=== PATIENT | male | born 1955 | race Caucasian/White ===

== ENCOUNTER 2017-01-06 12:15 | Emergency (ER) | payer MEDICAID, OTHER ==
[2017-01-06 12:21] VITALS: RESP 20; TEMP 98; O2SAT 100
--- NOTE | 2017-01-06 12:47 | ED PDOC ---
Lower Extremity Pain/Injury Time Seen by Provider: 01/06/17 12:30 Chief Complaint (Nursing): Back Pain Chief Complaint (Provider): Left hip pain History Per: Patient History/Exam Limitations: no limitations Onset/Duration Of Symptoms: Days (x3) Current Symptoms Are (Timing): Still Present Additional Complaint(s): Ronaldo Lanza is a 61 year old male with previous medical history of diabetes and hypertension, who presents to the emergency department with a complaint of a gradual onset of left hip pain ongoing for 3 days. Denied any fever, chills, or swelling. Patient stated pain is constant and have been taking Ibuprofen for pain relief. PMD: Lance Daniel MD Past Medical History Reviewed: Historical Data, Nursing Documentation, Vital Signs Vital Signs: Last Vital Signs Temp 98.0 F 01/06/17 12:18 Pulse 115 H 01/06/17 12:18 Resp 20 01/06/17 12:18 BP 159/83 H 01/06/17 12:18 Pulse Ox 100 01/06/17 12:18 - Medical History PMH: Diabetes, HTN - Surgical History Surgical History: No Surg Hx - Family History Family History: States: Unknown Family Hx - Home Medications Home Medications: Ambulatory Orders Medication Instructions Recorded traMADol [Ultram] 50 mg PO TID #16 tab 12/31/13 Cyclobenzaprine [Cyclobenzaprine 10 mg PO BID #10 tab 03/02/16 HCl] Ibuprofen [Motrin] 600 mg PO Q6 #20 tab 01/06/17 - Allergies Allergies/Adverse Reactions: Allergies Allergy/AdvReac Type Severity Reaction Status Date / Time No Known Allergies Allergy Verified 03/02/16 20:46 Review of Systems ROS Statement: Except As Marked, All Systems Reviewed And Found Negative Constitutional: Negative for: Fever, Chills Musculoskeletal: Positive for: Leg Pain (left hip). Negative for: Other ( swelling) Physical Exam - Reviewed Nursing Documentation Reviewed: Yes Vital Signs Reviewed: Yes - Physical Exam Appears: Positive for: Well, Non-toxic, No Acute Distress Head Exam: Positive for: ATRAUMATIC, NORMAL INSPECTION, NORMOCEPHALIC Skin: Positive for: Normal Color Extremity: Positive for: Normal ROM (with pain on external rotation of lower extremity), Tenderness (left inguinal crease). 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 Provider Scribe Attestation: All medical record entries made by the Scribe were at my direction and personally dictated by me. I have reviewed the chart and agree that the record accurately reflects my personal performance of the history, physical exam, medical decision making, and the department course for this patient. I have also personally directed, reviewed, and agree with the discharge instructions and disposition. Disposition - Clinical Impression Clinical Impression: Hip pain, Arthralgia, DJD (degenerative joint disease) - Patient ED Disposition Is Patient to be Admitted: No - Disposition Disposition: Routine/Home Disposition Time: 14:04 Condition: STABLE Prescriptions: Ibuprofen [Motrin] 600 mg PO Q6 #20 tab Instructions: Hip Pain (ED), Arthritis (ED) Forms: [address] ([place]ican)
[2017-01-06] MEDS ORDERED: Oxycodone/Acetaminophen 5/325 mg Tab PO STA (12:51)
[2017-01-06] MEDS ORDERED: Oxycodone/Acetaminophen 5/325 mg Tab ONE (13:19)
--- NOTE | 2017-01-06 14:02 | RAD ---
PROCEDURE: Left Hand Radiographs. HISTORY: Left hip pain COMPARISON: None. FINDINGS: BONES: The pelvic ring is intact. Bone mineralization is normal. There is no acute displaced fracture or bone destruction. JOINTS: The hip joint spaces are preserved. The sacroiliac joints are normal. SOFT TISSUES: Normal. OTHER FINDINGS: There are multiple phleboliths in the pelvis. IMPRESSION: No acute displaced fracture or dislocation. Please note occult fractures cannot be excluded on plain radiographs. If there is a persistent clinical concern, an MRI of the hip may be performed for further evaluation.
[2017-01-06 14:09] VITALS: BP 145/84; PULSE 93
== END 2017-01-06 14:08 | disposition home or self-care (01) ==
LOC: H.ER 12:15
DX: M25.552 Pain in left hip (principal); E11.9 Type 2 diabetes mellitus without complications; I10 Essential (primary) hypertension

== ENCOUNTER 2017-08-14 18:38 | Inpatient (IN) | payer MEDICAID, OTHER ==
--- NOTE | 2017-08-14 19:41 | ED PDOC ---
HPI:STROKE - Time Time: 19:20 - Historian Historian: Patient - Chief Complaint Chief Complaint: Slurred speech, Facial droop - Onset Date: 08/13/17 Time: 18:30 Onset: Yesterday - Timing Timing: Persistent - Location Locate left: Face - Radiation Radiation: None - Severity of pain Maximum severity:: None Pain Scale:: 0 - Exacerbated by Exacerbated by:: Nothing - TPA Positive for Contraindication: No Reason tPA is not being Administered: Out of window - Notes: Notes:: Hx of IDDM, HTN p/w L facial droop, states that he was asleep at 6:30PM and was awoken by a phone call, states he was talking to someone on the phone and noticed his voice was different, patient looked in mirror and noticed a facial droop on the left side, however denies any extremity weakness, sensation change , change in gait, vision loss. States he had a "little headache" that has since resolved. Patient notes that yesterday he was cleaning his left ear, but denies any ear pain. Denies alcohol, drug use. Patient also endorses pleuritic chest pain. NIHSS Stroke Scale - Date/Time Evaluation Performed Date Performed: 08/14/17 Time Performed: 19:20 When Was NIHSS Performed: 24 hours post onset S/S - How Severe is the Stroke Level of Consciousness: 0=Alert LOC to Questions: 0=Both comments correct LOC to commands: 0=Obeys both correctly Best Gaze: 0=Normal Visual: 0=No visual loss Facial: 2=Partial (lower face paralysis) Motor Arm - Left: 0=No drift Motor Arm - Right: 0=No drift Motor Leg - Left: 0=No drift Motor Leg - Right: 0=No drift Limb Ataxia: 0=Absent Sensory: 0=Normal Best Language: 0=No aphasia Dysarthia: 0=Normal articulation Extinction & Inattention (Neglect): 0=Normal, no object Score: 2 rTPA Inclusion/Exclusion - Refusal of Treatment Patient Refused Treatment: No - Inclusion Criteria for Altepase Patient is 18 years or Older: Yes The Clinical Diagnosis of Ischemic Stroke That is Causing a Potentially Disabling Neurological Deficit: No Time of Onset is Well Established to be Less Than 270 Minute Before Treatment Would Begin: No Risk/Benefit Discussed With Patient/Family Member Present: No Past Medical History Reviewed: Historical Data, Nursing Documentation, Vital Signs Vital Signs: Last Vital Signs Temp 98.7 F 08/14/17 18:40 Pulse 110 H 08/14/17 18:40 Resp 16 08/14/17 18:40 BP 132/92 H 08/14/17 18:40 Pulse Ox 100 08/14/17 18:40 - Medical History PMH: Diabetes, HTN - Family History Family History: States: Unknown Family Hx - Home Medications Home Medications: Ambulatory Orders Medication Instructions Recorded traMADol [Ultram] 50 mg PO TID #16 tab 12/31/13 Cyclobenzaprine [Cyclobenzaprine 10 mg PO BID #10 tab 03/02/16 HCl] Ibuprofen [Motrin] 600 mg PO Q6 #20 tab 01/06/17 Aspirin [Ecotrin] 81 mg PO DAILY 08/14/17 Insulin Glargine, Recombina 30 unit SC QPM 08/14/17 [Lantus] MetFORMIN [glucOPHAGE] 1,000 mg PO BID 08/14/17 - Allergies Allergies/Adverse Reactions: Allergies Allergy/AdvReac Type Severity Reaction Status Date / Time No Known Allergies Allergy Verified 03/02/16 20:46 Review of Systems ROS Statement: Except As Marked, All Systems Reviewed And Found Negative Neurological: Positive for: Other (Facial Droop) Physical Exam - Reviewed Nursing Documentation Reviewed: Yes Vital Signs Reviewed: Yes - Physical Exam Appears: Positive for: Well, Non-toxic, No Acute Distress Head Exam: Positive for: ATRAUMATIC, NORMAL INSPECTION, NORMOCEPHALIC Skin: Positive for: Normal Color, Warm, DRY Eye Exam: Positive for: EOMI, Normal appearance, PERRL ENT: Positive for: Normal ENT Inspection, Other (Normal TMs) Neck: Positive for: Normal, Painless ROM Cardiovascular/Chest: Positive for: Regular Rate, Rhythm Respiratory: Positive for: CNT, Normal Breath Sounds Gastrointestinal/Abdominal: Positive for: Normal Exam, Soft Back: Positive for: Normal Inspection Extremity: Positive for: Normal ROM Neurologic/Psych: Positive for: 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 Negative for: Motor/Sensory Deficits, Aphasia - Laboratory Results Result Diagrams: 08/14/17 19:56 08/14/17 19:56 - ECG ECG Rhythm: Positive for: Normal QRS, Normal ST Segment, Sinus Rhythm O2 Sat by Pulse Oximetry: 100 Pulse Ox Interpretation: Normal - Critical Care Total Time (In Min): 30 Medical Decision Making Medical Decision MakinPM A/P: Hx of HTN, DM p/w L facial droop onset 6:30PM, also pleuritic CP -ABC's intact, tachycardia on monitor -patient has isolated L facial droop, however still wrinkling eyebrows and able to completely close L eye which likely excludes Iniguez's, but possible partial Iniguez's? -will initiate stroke workup, however patient is well out of window for TPA -pending CT, bloodwork, neuro consult -patient took ASA 81mg today, will give full dose after CT to r/o hemorrhagic infarct -pending admit to tele after workup complete for further stroke workup/ management including MRI, dopplers, eval by neuro Disposition - Clinical Impression Clinical Impression: Facial droop - Disposition Disposition Time: 21:40 Condition: SERIOUS
[2017-08-14 20:00] LABS: BASO % 0.3 % (0.0-2.0); EOS # 0.2 K/uL (0.0-0.7); HEMOGLOBIN 11.5 g/dL (12.0-18.0); LYMPH # 1.8 K/uL (1.0-4.3); LYMPH % 28.7 % (20.0-40.0); MEAN CELL VOLUME 79.2 fl (80.0-94.0); MEAN CORPUSCULAR HEMOGLOBIN 26.5 pg (27.0-31.0); MEAN CORPUSCULAR HGB CONC 33.4 g/dL (33.0-37.0); MEAN PLATELET VOLUME 8.6 fl (7.2-11.7); MONO # 0.5 K/uL (0.0-0.8); NEUT # 3.6 K/uL (1.8-7.0); RBC 4.33 Mil/uL (4.40-5.90); RED CELL DISTRIBUTION WIDTH 14.5 % (11.5-14.5); WHITE BLOOD COUNT 6.2 K/uL (4.8-10.8)
[2017-08-14 20:14] LABS: INR 1.1 (0.9-1.2); PARTIAL THROMBOPLASTIN TIME 37.4 Seconds (25.6-37.1); PROTHROMBIN TIME 11.7 Seconds (9.8-13.1)
[2017-08-14] MEDS ORDERED: Sodium Chloride 0.9% 1,000 ML IV STA (21:23)
[2017-08-14] MEDS ORDERED: Iodixanol 320 MG/ML 100 ML BOTTLE IV ONE (21:27)
[2017-08-14] MEDS ORDERED: Sodium Chloride 0.9% 100 ML ONE (21:27)
[2017-08-14 21:58] LABS: ALBUMIN 4.4 g/dL (3.5-5.0); ALT/SGPT 14 U/L (21-72); AST/SGOT 25 U/L (17-59); BLOOD UREA NITROGEN 15 mg/dl (9-20); CALCIUM 9.8 mg/dL (8.4-10.2); GFR AFRICAN-AMERICAN > 60; GFR NON-AFRICAN AMERICAN > 60; HDL CHOLESTEROL 29 MG/DL (30-70)
[2017-08-14 22:09] LABS: LDL CHOLESTEROL 90 mg/dL (0-129)
--- NOTE | 2017-08-14 23:18 | CP.PCM.HP ---
History of Present Illness - History of Present Illness History of Present Illness: PMD: Fredy Wilson MD Chief complaint: Slurred speech/ Facial droop The patient was seen and examined in the ED HPI: This is a 61 years old male with hx of DM I, HTN and branchial Plexopathy who comes with a 24hours hx of left left facial weakness and slurred speech noted while talking on the phone and looking in the mirror. This was associated by feeling out of balance with frontal headaches and chest tightness. No weakness to upper nor lower extremities, no loss of sensation, no abnormalities to the eyes, no SOB nor palpitations. In the ED his NIHSS was 2. He does refer fever and chills4-5 days ago and was in [place] 4-5 days ago. 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 absent: Anorexia, Chills, Fever - EENT Eyes: Requires Corrective Lenses. absent: Diplopia, Floaters, Sees Flashes Ears: absent: Decreased Hearing, Ear Discharge, Tinnitus Nose/Mouth/Throat: absent: Epistaxis, Nasal Congestion, Sinus Pain, Sinus Pressure - Cardiovascular Cardiovascular: absent: Chest Pain, Dyspnea, Edema - Respiratory Respiratory: absent: Dyspnea, Wheezing, Snoring, Stridor - Gastrointestinal Gastrointestinal: Constipation. absent: Diarrhea, Nausea, Vomiting - Musculoskeletal Additional comments: Chronic Right upper extremity weakness with contracted fingers of the right hand. Right shoulder weakness Left total shoulder replacement - Integumentary Integumentary: absent: Pruritus, Rash, Skin Ulcer, Sores, Striae, Swelling - Neurological Neurological: Focal Weakness, Headaches. absent: Confusion, Dizziness, Loss of Vision Additional comments: lightheadedness - Psychiatric Psychiatric: absent: Anxiety, Depression, Panic Attacks - Endocrine Endocrine: absent: Palpitations, Polydipsia, Polyphagia, Polyuria - Hematologic/Lymphatic Hematologic: absent: Easy Bleeding, Easy Bruising Past Patient History - Infectious Disease Hx of Infectious Diseases: None - Past Medical History & Family History Past Medical History?: Yes - Past Social History Smoking Status: Never Smoked Chewing Tobacco Use: No Cigar Use: No Alcohol: None Drugs: Denies Home Situation {Lives}: With Family - CARDIAC Hx Hypertension: Yes - PULMONARY Hx Respiratory Disorders: No - NEUROLOGICAL Hx Neurological Disorder: Yes - HEENT Other/Comment: Right Ulnar Neuropathy/ Right branchial plexopathy - RENAL Hx Chronic Kidney Disease: No - ENDOCRINE/METABOLIC Hx Diabetes Mellitus Type 2: Yes - HEMATOLOGICAL/ONCOLOGICAL Hx Blood Disorders: No - INTEGUMENTARY Hx Dermatological Problems: No - MUSCULOSKELETAL/RHEUMATOLOGICAL Hx Musculoskeletal Disorders: Yes Other/Comment: Right hand deformity with contracted fingers - GASTROINTESTINAL Hx Gastrointestinal Disorders: No - GENITOURINARY/GYNECOLOGICAL Hx Genitourinary Disorders: No - PSYCHIATRIC Hx Substance Use: No - SURGICAL HISTORY Other/Comment: right arm surgery due to a work related accident. Surgery to right wrist and right elbow. Left Total shoulder replacement - ANESTHESIA Hx Anesthesia: Yes Hx Anesthesia Reactions: No Hx Malignant Hyperthermia: No Meds Allergies/Adverse Reactions: Allergies Allergy/AdvReac Type Severity Reaction Status Date / Time No Known Allergies Allergy Verified 03/02/16 20:46 Physical Exam - Constitutional Appears: No Acute Distress - Head Exam Head Exam: ATRAUMATIC, NORMOCEPHALIC Additional comments: left facial droop - Eye Exam Eye Exam: EOMI, Normal appearance Pupil Exam: NORMAL ACCOMODATION, PERRL - ENT Exam ENT Exam: Mucous Membranes Moist, Normal External Ear Exam, Normal Oropharynx - Neck Exam Neck exam: Positive for: Full Rom, Normal Inspection. Negative for: Lymphadenopathy, Tenderness - Respiratory Exam Respiratory Exam: Clear to Auscultation Bilateral. absent: Rales, Rhonchi, Wheezes - Cardiovascular Exam Cardiovascular Exam: REGULAR RHYTHM, RRR, +S1, +S2. absent: Gallop, JVD - GI/Abdominal Exam GI & Abdominal Exam: Normal Bowel Sounds, Soft. absent: Mass, Organomegaly, Tenderness - Rectal Exam Rectal Exam: Deferred - Extremities Exam Additional comments: Right elbow with semi flexion. The right fingers are contracted in flexion. Weakness to theright shoulder. - Back Exam Back exam: NORMAL INSPECTION. absent: CVA tenderness (L), CVA tenderness (R) - Neurological Exam Additional comments: Awake , alert, oriented X3, left facial droop with slurred speech. motor strength 5/5 at both lower extremities and left upper extremity. The right upper extremity has a chronic 4/5 motor strength. DTR conserved - Psychiatric Exam Psychiatric exam: Normal Affect, Normal Mood - Skin Skin Exam: Dry, Intact, Normal Color, Warm Results - Vital Signs Recent Vital Signs: Last Vital Signs Temp 98.5 F 08/14/17 21:59 Pulse 105 H 08/14/17 21:53 Resp 20 08/14/17 21:53 BP 134/73 08/14/17 21:53 Pulse Ox 98 08/14/17 21:53 - Labs Result Diagrams: 08/14/17 19:56 08/14/17 19:56 Labs: Laboratory Results - last 24 hr 08/14/17 08/14/17 08/14/17 19:32 19:56 19:56 WBC 6.2 RBC 4.33 L Hgb 11.5 L Hct 34.2 L MCV 79.2 L MCH 26.5 L MCHC 33.4 RDW 14.5 Plt Count 295 MPV 8.6 Neut % (Auto) 59.0 Lymph % (Auto) 28.7 [place] % (Auto) 8.0 Eos % (Auto) 4.0 Baso % (Auto) 0.3 Neut # (Auto) 3.6 Lymph # (Auto) 1.8 [place] # (Auto) 0.5 Eos # (Auto) 0.2 Baso # (Auto) 0.0 PT INR APTT D-Dimer, Quantitative Sodium 143 Potassium 4.1 Chloride 100 Carbon Dioxide 26 Anion Gap 21 H BUN 15 Creatinine 1.1 Est GFR ( Amer) > 60 Est GFR (Non-Af Amer) > 60 POC Glucose (mg/dL) 108 Random Glucose 85 Calcium 9.8 Total Bilirubin 0.5 AST 25 ALT 14 L Alkaline Phosphatase 65 Troponin I < 0.0120 Total Protein 8.7 H Albumin 4.4 Globulin 3.9 Albumin/Globulin Ratio 1.0 Triglycerides 122 Cholesterol 148 LDL Cholesterol Direct 90 HDL Cholesterol 29 L Blood Type Antibody Screen BBK History Checked 08/14/17 08/14/17 19:56 19:56 WBC RBC Hgb Hct MCV MCH MCHC RDW Plt Count MPV Neut % (Auto) Lymph % (Auto) [place] % (Auto) Eos % (Auto) Baso % (Auto) Neut # (Auto) Lymph # (Auto) [place] # (Auto) Eos # (Auto) Baso # (Auto) PT 11.7 INR 1.1 APTT 37.4 H D-Dimer, Quantitative 366 H Sodium Potassium Chloride Carbon Dioxide Anion Gap BUN Creatinine Est GFR ( Amer) Est GFR (Non-Af Amer) POC Glucose (mg/dL) Random Glucose Calcium Total Bilirubin AST ALT Alkaline Phosphatase Troponin I Total Protein Albumin Globulin Albumin/Globulin Ratio Triglycerides Cholesterol LDL Cholesterol Direct HDL Cholesterol Blood Type A POSITIVE Antibody Screen Negative BBK History Checked Patient has bt - Imaging and Cardiology CT scan - head Status: Image reviewed by me, Report reviewed by me Additional comment: EXAM: CT Head Without Intravenous Contrast EXAM DATE/TIME: 08/14/2017 7:20 PM FINDINGS: Brain: No intracranial hemorrhage. Mild periventricular hypoattenuation is likely due to small vessel disease. No evidence of evolved territorial infarct or cerebral edema. No mass effect or midline shift. Ventricles: Unremarkable. No ventriculomegaly. Bones/joints: No acute osseous abnormality. Soft tissues: No soft tissue swelling. Sinuses: Visualized paranasal sinuses are clear. Mastoid air cells: Mastoid air cells are well-aerated IMPRESSION: No acute intracranial findings. CTA chest Additional comment: EXAM: CT Angiography Chest With Intravenous Contrast EXAM DATE/TIME: 08/14/2017 9:23 PM FINDINGS: No pulmonary embolism. No aortic dissection or aneurysm. No pleural or pericardial effusion. No pulmonary consolidation. Small round calcification right lower lung. Mild degenerative changes are present. IMPRESSION: No acute findings. Assessment & Plan - Assessment and Plan (Free Text) Assessment: #. Left facial weakness #. Anemia #. DM II insulin requiring #. Elevated D Dimer #. 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 In the ED his NIHSS was 2. #. Left facial weakness with lightheadedness being out of balance, r/o CVA vs bells palsy CT-Head IMPRESSION: No acute intracranial findings. Consult Dr Richard Neurology -CTA of head and neck - MRI brain - HIV - RPR - Neuro checks Q4H - Swallow Evaluation - PT/OT - Speech therapy - ASA #. Anemia - Iron panel/B12 level - follow HB #. DM II insulin requiring - Hold Metformin for 48 hrs because of Contrast used in cat scan - Regular Insulin sliding scale according to Accucheck - Restart Long acting Insulin - follow HbA1c #. Elevated D Dimer - CTA Chest Negative for Pulmonary Embolism #. 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 DVT prophylaxis with SCD and Lovenox #. Code Status: Full - Date & Time Date: 08/14/17 Time: 23:18
--- NOTE | 2017-08-14 23:45 | CT ---
EXAM: CT Angiography Chest With Intravenous Contrast EXAM DATE/TIME: 08/14/2017 9:23 PM CLINICAL HISTORY: 61 years old, male; Pain; Chest pain; Type not specified; Additional info: R/O pe TECHNIQUE: Axial computed tomographic angiography images of the chest with intravenous contrast using pulmonary embolism protocol. All CT scans at this facility use one or more dose reduction techniques, viz.: automated exposure control; ma/kV adjustment per patient size (including targeted exams where dose is matched to indication; i.e. head); or iterative reconstruction technique. MIP reconstructed images were created and reviewed. Coronal and sagittal reformatted images were created and reviewed. CONTRAST: 72 mL of [id number] administered intravenously. COMPARISON: CR - CHEST PORTABLE 2017-08-14 19:25 FINDINGS: No pulmonary embolism. No aortic dissection or aneurysm. No pleural or pericardial effussions. No pulmonary consolidation. Small round calcification right lower lung. Mild degenerative changes are present. IMPRESSION: No acute findings.
[2017-08-15] MEDS: Dextrose 5%/0.9% NS 1,000 ML IV SCH ×2 (00:16→11:25)
[2017-08-15] MEDS: Insulin Regular 100 units/ml SC SCH ×4 (00:17→17:58)
[2017-08-15 06:47] LABS: IRON 32 ug/dL (49-181)
[2017-08-15 06:56] LABS: % IRON SATURATION 12 % (20-55); TOTAL IRON BINDING CAPACITY 278 ug/dL (250-450)
[2017-08-15] MEDS ORDERED: Insulin Regular 100 units/ml SC SCH (07:30)
--- NOTE | 2017-08-15 09:26 | RAD ---
HISTORY: Code Stroke COMPARISON: The study was read in conjunction with subsequent CTA chest 08/14/2017 FINDINGS: LUNGS: No active pulmonary disease. PLEURA: No significant pleural effusion identified, no pneumothorax apparent. CARDIOVASCULAR: Normal. OSSEOUS STRUCTURES: No significant abnormalities. VISUALIZED UPPER ABDOMEN: Normal. OTHER FINDINGS: None. IMPRESSION: No active disease.
--- NOTE | 2017-08-15 10:01 | CT ---
PROCEDURE: CT HEAD WITHOUT CONTRAST. HISTORY: Left facial droop onset 6:30PM yesterday COMPARISON: None available. TECHNIQUE: Axial computed tomography images were obtained through the head/brain without intravenous contrast. Radiation dose: Total exam DLP = 790.45 mGy-cm. This CT exam was performed using one or more of the following dose reduction techniques: Automated exposure control, adjustment of the mA and/or kV according to patient size, and/or use of iterative reconstruction technique. FINDINGS: HEMORRHAGE: No acute parenchymal, subarachnoid or extra-axial hemorrhage. BRAIN: Moderate diffuse/confluent chronic white matter ischemic changes seen extending peripherally into the deep and subcortical white matter both cerebral hemispheres. The possibility of a small hyperacute infarct cannot be excluded as there is a concern, recommend followup MRI of the brain with diffusion imaging provided there are no contraindications to MRI this patient. No obvious parenchymal nor extra-axial mass or collection seen on this noncontrast study. Mild vascular calcifications. VENTRICLES: Hemispheres. No obstructive hydrocephalus. CALVARIUM: There are no acute calvarial fractures. PARANASAL SINUSES: The frontal sinuses appear underpneumatized/ hypoplastic. Questionable mucosal thickening superior margin right maxillary antrum. . MASTOID AIR CELLS: Unremarkable as visualized. No inflammatory changes. OTHER FINDINGS: None. IMPRESSION: No acute intracranial hemorrhage. Moderate. Note that diffuse/confluent chronic white matter ischemic changes seen extending peripherally into the deep and subcortical white matter both cerebral hemispheres. Moderate diffuse/confluent chronic white matter ischemic changes seen extending peripherally into the deep and subcortical white matter both cerebral hemispheres.
--- NOTE | 2017-08-15 10:04 | CP.PCM.CON ---
History of Present Illness - History of Present Illness History of Present Illness: 61 yr old male, with pmh of Dm , who presents with 20 hour onset of left sided facial droop, new onset. says that he woke up with left sided facial droop, with no headache, no aphasia, no weakness noted, otalgia, or hearing loss. Denies trauma, mva, or prior spells. Today, he is well, comfortable with no new symptoms. PMH/PSH: DM, blood sugar is about 100-110 FH/SH: Has 4 children, no tobacco, no etoh. 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 All: On exam: AAOX3. Pupils 3mm-2mm with light. EOMI. left sided facial droop, can wrinkle forehead minimally. hearing equal bilaterally speech fluent, left sided facial droop, orbicularis oculis is 4/5. sensory: intact ft, pin, position and vibration sense. cerebellar: no dysmetria Gait; normal, no ataxia. +2 dtr ul and ll bl. Toes downgoing no clonus. Past Patient History - Infectious Disease Hx of Infectious Diseases: None - Past Medical History & Family History Past Medical History?: Yes - Past Social History Smoking Status: Never Smoked Chewing Tobacco Use: No Cigar Use: No Alcohol: None Drugs: Denies Home Situation {Lives}: With Family - CARDIAC Hx Hypertension: Yes - PULMONARY Hx Respiratory Disorders: No - NEUROLOGICAL Hx Neurological Disorder: Yes - HEENT Other/Comment: Right Ulnar Neuropathy/ Right branchial plexopathy - RENAL Hx Chronic Kidney Disease: No - ENDOCRINE/METABOLIC Hx Diabetes Mellitus Type 2: Yes - HEMATOLOGICAL/ONCOLOGICAL Hx Blood Disorders: No - INTEGUMENTARY Hx Dermatological Problems: No - MUSCULOSKELETAL/RHEUMATOLOGICAL Hx Musculoskeletal Disorders: Yes Other/Comment: Right hand deformity with contracted fingers - GASTROINTESTINAL Hx Gastrointestinal Disorders: No - GENITOURINARY/GYNECOLOGICAL Hx Genitourinary Disorders: No - PSYCHIATRIC Hx Substance Use: No - SURGICAL HISTORY Other/Comment: right arm surgery due to a work related accident. Surgery to right wrist and right elbow. Left Total shoulder replacement - ANESTHESIA Hx Anesthesia: Yes Hx Anesthesia Reactions: No Hx Malignant Hyperthermia: No Meds Allergies/Adverse Reactions: Allergies Allergy/AdvReac Type Severity Reaction Status Date / Time No Known Allergies Allergy Verified 03/02/16 20:46 - Medications Medications: Current Medications Aspirin (Aspirin) 325 mg PO DAILY [facility] Atorvastatin Calcium (Lipitor) 20 mg PO DAILY [facility] Enoxaparin Sodium (Lovenox) 40 mg SC DAILY [facility] PRN Reason: Protocol Dextrose/Sodium Chloride (Dextrose 5%/0.9% Ns 1000 Ml) 1,000 mls @ 100 mls/hr IV .Q10H [facility] Stop: 08/15/17 23:58 Last Admin: 08/15/17 00:16 Dose: 100 mls/hr Insulin Human Regular (Humulin R) 0 units SC Q6H [facility] PRN Reason: Protocol Last Admin: 08/15/17 06:09 Dose: Not Given Results - Vital Signs Recent Vital Signs: Last Vital Signs Temp 98.1 F 08/15/17 08:00 Pulse 82 08/15/17 08:00 Resp 20 08/15/17 08:00 BP 136/73 08/15/17 08:00 Pulse Ox 98 08/15/17 08:00 - Labs Result Diagrams: 08/14/17 19:56 08/14/17 19:56 Labs: Laboratory Results - last 24 hr 08/14/17 08/14/17 08/14/17 19:32 19:56 19:56 WBC 6.2 RBC 4.33 L Hgb 11.5 L Hct 34.2 L MCV 79.2 L MCH 26.5 L MCHC 33.4 RDW 14.5 Plt Count 295 MPV 8.6 Neut % (Auto) 59.0 Lymph % (Auto) 28.7 [place] % (Auto) 8.0 Eos % (Auto) 4.0 Baso % (Auto) 0.3 Neut # (Auto) 3.6 Lymph # (Auto) 1.8 [place] # (Auto) 0.5 Eos # (Auto) 0.2 Baso # (Auto) 0.0 PT INR APTT D-Dimer, Quantitative Sodium 143 Potassium 4.1 Chloride 100 Carbon Dioxide 26 Anion Gap 21 H BUN 15 Creatinine 1.1 Est GFR ( Amer) > 60 Est GFR (Non-Af Amer) > 60 POC Glucose (mg/dL) 108 Random Glucose 85 Calcium 9.8 Iron TIBC % Saturation Total Bilirubin 0.5 AST 25 ALT 14 L Alkaline Phosphatase 65 Troponin I < 0.0120 Total Protein 8.7 H Albumin 4.4 Globulin 3.9 Albumin/Globulin Ratio 1.0 Triglycerides 122 Cholesterol 148 LDL Cholesterol Direct 90 HDL Cholesterol 29 L Vitamin B12 Blood Type Antibody Screen BBK History Checked 08/14/17 08/14/17 08/15/17 19:56 19:56 05:00 WBC RBC Hgb Hct MCV MCH MCHC RDW Plt Count MPV Neut % (Auto) Lymph % (Auto) [place] % (Auto) Eos % (Auto) Baso % (Auto) Neut # (Auto) Lymph # (Auto) [place] # (Auto) Eos # (Auto) Baso # (Auto) PT 11.7 INR 1.1 APTT 37.4 H D-Dimer, Quantitative 366 H Sodium Potassium Chloride Carbon Dioxide Anion Gap BUN Creatinine Est GFR ( Amer) Est GFR (Non-Af Amer) POC Glucose (mg/dL) 115 H Random Glucose Calcium Iron TIBC % Saturation Total Bilirubin AST ALT Alkaline Phosphatase Troponin I Total Protein Albumin Globulin Albumin/Globulin Ratio Triglycerides Cholesterol LDL Cholesterol Direct HDL Cholesterol Vitamin B12 Blood Type A POSITIVE Antibody Screen Negative BBK History Checked Patient has bt 08/15/17 08/15/17 05:45 05:45 WBC RBC Hgb Hct MCV MCH MCHC RDW Plt Count MPV Neut % (Auto) Lymph % (Auto) [place] % (Auto) Eos % (Auto) Baso % (Auto) Neut # (Auto) Lymph # (Auto) [place] # (Auto) Eos # (Auto) Baso # (Auto) PT INR APTT D-Dimer, Quantitative Sodium Potassium Chloride Carbon Dioxide Anion Gap BUN Creatinine Est GFR ( Amer) Est GFR (Non-Af Amer) POC Glucose (mg/dL) Random Glucose Calcium Iron 32 L TIBC 278 % Saturation 12 L Total Bilirubin AST ALT Alkaline Phosphatase Troponin I < 0.0120 Total Protein Albumin Globulin Albumin/Globulin Ratio Triglycerides Cholesterol LDL Cholesterol Direct HDL Cholesterol Vitamin B12 316 Blood Type Antibody Screen BBK History Checked - Imaging and Cardiology CT scan - head Status: Image reviewed by me, Report reviewed by me (normal ct head ) Assessment & Plan - Assessment and Plan (Free Text) Assessment: 61 yr old male with possible bells palsy, but with stroke risk factors, could also have right cortical stroke. plan: 1. MRI Rohith. if normal, then will discharge home. 2. Treat for bells palsy on discharge if mri normal with prednisone 60 mg po daily, eye patch, artifical tears, and acyclovir 800 mg po tid. thank you DR. cristel md, DPN
[2017-08-15] MEDS: Enoxaparin 40 mg Syringe SC SCH (11:25)
--- NOTE | 2017-08-15 13:38 | CP.PCM.PN ---
Subjective - Date & Time of Evaluation Date of Evaluation: 08/15/17 Time of Evaluation: 13:00 - Subjective Subjective: still with left facial droop and numbness but states sl better passed swallow eval no fever no CP no SOB no abd pain Objective - Vital Signs/Intake and Output Vital Signs (last 24 hours): Temp Pulse Resp BP Pulse Ox 98 F 83 18 151/77 H 99 08/15/17 12:28 08/15/17 12:28 08/15/17 12:28 08/15/17 12:28 08/15/17 12:28 - Medications Medications: Current Medications Aspirin (Aspirin) 325 mg PO DAILY [facility] Last Admin: 08/15/17 11:24 Dose: 325 mg Atorvastatin Calcium (Lipitor) 20 mg PO DAILY [facility] Last Admin: 08/15/17 11:24 Dose: 20 mg Enoxaparin Sodium (Lovenox) 40 mg SC DAILY [facility] PRN Reason: Protocol Last Admin: 08/15/17 11:25 Dose: 40 mg Dextrose/Sodium Chloride (Dextrose 5%/0.9% Ns 1000 Ml) 1,000 mls @ 100 mls/hr IV .Q10H [facility] Stop: 08/15/17 23:58 Last Admin: 08/15/17 11:25 Dose: 100 mls/hr Insulin Human Regular (Humulin R) 0 units SC Q6H [facility] PRN Reason: Protocol Last Admin: 08/15/17 06:09 Dose: Not Given - Labs Labs: 08/14/17 19:56 08/14/17 19:56 PT 11.7 Seconds (9.8-13.1) 08/14/17 19:56 INR 1.1 (0.9-1.2) 08/14/17 19:56 APTT 37.4 Seconds (25.6-37.1) H 08/14/17 19:56 - Constitutional Appears: No Acute Distress - Head Exam Head Exam: ATRAUMATIC, NORMAL INSPECTION, NORMOCEPHALIC - Eye Exam Eye Exam: EOMI, Normal appearance Pupil Exam: NORMAL ACCOMODATION - ENT Exam ENT Exam: Mucous Membranes Moist, Normal External Ear Exam - Neck Exam Neck Exam: Full ROM. absent: Meningismus - Respiratory Exam Respiratory Exam: NORMAL BREATHING PATTERN. absent: Respiratory Distress - Cardiovascular Exam Cardiovascular Exam: REGULAR RHYTHM, +S1, +S2 - GI/Abdominal Exam GI & Abdominal Exam: Soft, Normal Bowel Sounds. absent: Tenderness - Extremities Exam Extremities Exam: Normal Capillary Refill. absent: Calf Tenderness, Pedal Edema - Back Exam Back Exam: Full ROM. absent: CVA tenderness (L), CVA tenderness (R) - Neurological Exam Neurological Exam: Alert, Awake, Oriented x3 Neuro motor strength exam: Left Upper Extremity: 5, Right Upper Extremity: 5, Left Lower Extremity: 5, Right Lower Extremity: 5 Additional comments: left facial droop decrease sensory left face - Psychiatric Exam Psychiatric exam: Normal Affect, Normal Mood - Skin Skin Exam: Dry, Normal Color, Warm Assessment and Plan - Assessment and Plan (Free Text) Assessment: 61 years old male with hx of DM II, HTN and branchial Plexopathy who came with a 24hours hx of left facial weakness, numbness and slurred speech. Facial weakness spares the forehead and pt able to close eyelid. He had feeling no visual abnormalities , no SOB nor palpitations. In the ED his NIHSS was 2. CT of the head : negative MRI of Brain : Small acute infarct right posterior superior frontal subcortical white matter. Mild to moderate chronic white matter and brainstem ischemic changes as described. 1. Acute CVA Consulted Dr Richard Neurology -CTA of head and neck - MRI brain: small acute CVA - cont ASA, start Statin - Lovenox for DVT proph - Passed Swallow eval - Regular diet with thin liquid - PT/OT - CTA of Head and Neck - ECHO 2. Mild Anemia, iron def chronic 3. DM II insulin requiring - Hold Metformin for 48 hrs because of Contrast used in cat scan - Regular Insulin sliding scale according to Accucheck - Restart Long acting Insulin- Levemir 15 units - follow HbA1c 4. Elevated D Dimer - CTA Chest: Negative for Pulmonary Embolism 5. 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 DVT prophylaxis with SCD and Lovenox
--- NOTE | 2017-08-15 13:44 | MRI ---
PROCEDURE: MRI of the brain dated 08/15/2017 HISTORY: Dated 08/15/2017 left facial weakness with unsteady gait COMPARISON: Comparison made with prior CT scan of the brain dated 08/14/2017. TECHNIQUE: Multiplanar, multisequence MR images of the brain were obtained without intravenous contrast enhancement. FINDINGS: HEMORRHAGE: No acute parenchymal, subarachnoid or extra-axial hemorrhage. DWI: There is a small acute infarct seen in the right posterior frontal subcortical white matter at the level of the hairston radiata/ inferior centrum semiovale junction. . BRAIN PARENCHYMA: Re- demonstrated are mild -moderate diffuse/ confluent chronic periventricular white matter. Additionally, there are mild chronic appearing brainstem ischemic changes as well. VENTRICLES: No obstructive hydrocephalus. CRANIUM: No acute calvarial abnormalities ORBITS: Changes of right-sided cataract surgery. Orbital contents otherwise unremarkable. PARANASAL SINUSES/MASTOIDS: Visualized paranasal sinuses are well-developed and currently well-aerated. VASCULAR SYSTEM: Visualized major vascular flow voids at the skull base patent. OTHER FINDINGS: None. IMPRESSION: Small acute infarct right posterior superior frontal subcortical white matter. Mild to moderate chronic white matter and brainstem ischemic changes as described. Note these findings were discussed with 4 Geovani Gil at approximately 1:30 p.m. with written down and read back verification. Changes of the right-sided cataract surgery.
[2017-08-15 18:42] LABS: BARBITURATES, UR NEGATIVE (NEGATIVE); BENZODIAZEPINES, UR NEGATIVE (NEGATIVE); OPIATES, UR NEGATIVE (NEGATIVE); PHENCYCLIDINE, UR NEGATIVE (NEGATIVE)
[2017-08-15] MEDS ORDERED: Iodixanol 320 MG/ML 100 ML BOTTLE IV ONE (21:14)
[2017-08-15] MEDS ORDERED: Sodium Chloride 0.9% 100 ML ONE (21:15)
[2017-08-15] MEDS ORDERED: Insulin Detemir 100 Units/ml Inj SC SCH (22:00)
[2017-08-16] MEDS: Insulin Regular 100 units/ml SC SCH ×3 (00:15→13:40)
[2017-08-16 08:35] VITALS: RESP 20
--- NOTE | 2017-08-16 08:39 | CP.PCM.PN ---
Subjective - Date & Time of Evaluation Date of Evaluation: 08/16/17 Time of Evaluation: 08:36 - Subjective Subjective: Mr. Lanza was seen and examined at the bedside. He is alert, oriented in all spheres. He denies any headache, dizziness, lightheadedness, nausea, or vomiting. He is able to follow simple commands. He complains of sore in his throat, no redness noted at the posterior of his palate, no lymphenopathy. He is able to swallow his saliva with no problem. He remains with left facial droop. MRI of the brain showed small acute infarct right posterior superior frontal subcortical white matter. Mild to moderate chronic white matter and brainstem ischemic changes.There was no untoward events overnight. Objective - Vital Signs/Intake and Output Vital Signs (last 24 hours): Temp Pulse Resp BP Pulse Ox 98.4 F 88 20 132/76 96 08/16/17 08:00 08/16/17 08:00 08/16/17 08:00 08/16/17 08:00 08/16/17 08:00 - Medications Medications: Current Medications Aspirin (Aspirin Chewable) 81 mg PO DAILY [facility] Atorvastatin Calcium (Lipitor) 20 mg PO DAILY [facility] Last Admin: 08/15/17 11:24 Dose: 20 mg Clopidogrel Bisulfate (Plavix) 75 mg PO DAILY [facility] Enoxaparin Sodium (Lovenox) 40 mg SC DAILY [facility] PRN Reason: Protocol Last Admin: 08/15/17 11:25 Dose: 40 mg Insulin Detemir (Levemir) 15 units SC HS [facility] Last Admin: 08/15/17 21:59 Dose: 15 units Insulin Human Regular (Humulin R) 0 units SC Q6H [facility] PRN Reason: Protocol Last Admin: 08/16/17 06:56 Dose: 1 units - Labs Labs: 08/14/17 19:56 08/14/17 19:56 PT 11.7 Seconds (9.8-13.1) 08/14/17 19:56 INR 1.1 (0.9-1.2) 08/14/17 19:56 APTT 37.4 Seconds (25.6-37.1) H 08/14/17 19:56 - Constitutional Appears: No Acute Distress - Head Exam Head Exam: NORMAL INSPECTION - Neurological Exam Neurological Exam: Alert, Awake, Oriented x3 Neuro motor strength exam: Left Upper Extremity: 5, Right Upper Extremity: 5, Left Lower Extremity: 5, Right Lower Extremity: 5 Additional comments: He is alert, oriented, follows commands. Sensation is asymmetrical in his left facial area. Assessment and Plan (1) Ischemic stroke Assessment & Plan: Case discussed with Dr. Richard, continue all current medical, physical, occupational, and speech therapies. Stroke work up, Pending CTA of the head and neck results. Follow up echocardiogram. Recommend aspirin 81 mg PO daily and plavix 75 mg PO daily. Recommend glycemic control. Please refer to primary team for his sore throat, elevated D-dimer and PTT results. Status: Acute
[2017-08-16] MEDS ORDERED: Benzocaine/Menthol (Cepacol) Lozenge PO PRN (08:59)
[2017-08-16] MEDS: Enoxaparin 40 mg Syringe SC SCH (09:03)
--- NOTE | 2017-08-16 11:12 | CT ---
PROCEDURE: CTA HEAD AND NECK WITH CONTRAST HISTORY: left facial weakness/ unsteady gait COMPARISON: None available. TECHNIQUE: Initial noncontrast head CT was performed. Subsequently, CT angiogram of the head and neck were performed after the intravenous administration of 80 mL of Omnipaque 350. Contiguous 1.5mm thick images were obtained in the axial plane of the neck. 2-D coronal and sagittal MPR images were obtained. Imaging postprocessing was performed with 3-D images also obtained. A delayed contrast head CT was also obtained. This CT exam was performed using one or more of the following dose reduction techniques: Automated exposure control, adjustment of the mA and/or kV according to patient size, and/or use of iterative reconstruction technique. Contrast dose: 90 mL Visipaque 320 Radiation dose: Total exam DLP = 619.60 mGy-cm. FINDINGS: HEAD: Right: The intracranial internal carotid artery, and anterior and middle cerebral arteries are widely patent. Left: The intracranial internal carotid artery, and anterior and middle cerebral arteries are widely patent. Posterior circulation: The visualized intracranial vertebral arteries, basilar artery and posterior cerebral arteries are widely patent. Ther is no endoluminal filling defect to suggest thrombus. There is no intracranial saccular aneurysm. There is no abnormal enhancement on the postcontrast CT. NECK: There is a three vessel aortic arch. There is no stenosis at the origins of the great vessels at the level of the aortic arch. Right Carotid: On the right, the common carotid, internal carotid and external carotid arteries are widely patent. There is no hemodynamically significant stenosis in the internal carotid artery by NASCET criteria. Left Carotid: On the left, the common carotid, internal carotid and external carotid arteries are widely patent. There is no hemodynamically significant stenosis in the internal carotid artery by NASCET criteria. The vertebral arteries are widely patent. The vertebral artery is hypoplastic, an anatomic variant. The visualized soft tissues of the neck are normal. The visualized brain and cervical spine are within normal limits. The lung apices are clear. IMPRESSION: No evidence of saccular aneurysm, endoluminal thrombus or occlusion. No evidence of arterial dissection. No hemodynamically significant stenosis in the internal carotid arteries by NASCET criteria. A preliminary report was provided by [employer].
[2017-08-16 12:14] VITALS: O2SAT 97
--- NOTE | 2017-08-16 15:34 | CP.PCM.DIS ---
Provider - Provider Date of Admission: 08/15/17 15:04 Attending physician: Lucius Celaya Consults: Neurology: Dr Richard Time Spent in preparation of Discharge (in minutes): 40 Diagnosis - Discharge Diagnosis (1) Acute CVA (cerebrovascular accident) Status: Acute (2) DM type 2 (diabetes mellitus, type 2) Status: Chronic Hospital Course - Lab Results Lab Results: Most Recent Lab Values WBC 6.2 K/uL (4.8-10.8) 08/14/17 19:56 RBC 4.33 Mil/uL (4.40-5.90) L 08/14/17 19:56 Hgb 11.5 g/dL (12.0-18.0) L 08/14/17 19:56 Hct 34.2 % (35.0-51.0) L 08/14/17 19:56 MCV 79.2 fl (80.0-94.0) L 08/14/17 19:56 MCH 26.5 pg (27.0-31.0) L 08/14/17 19:56 MCHC 33.4 g/dL (33.0-37.0) 08/14/17 19:56 RDW 14.5 % (11.5-14.5) 08/14/17 19:56 Plt Count 295 K/uL (130-400) 08/14/17 19:56 MPV 8.6 fl (7.2-11.7) 08/14/17 19:56 Neut % (Auto) 59.0 % (50.0-75.0) 08/14/17 19:56 Lymph % (Auto) 28.7 % (20.0-40.0) 08/14/17 19:56 [place] % (Auto) 8.0 % (0.0-10.0) 08/14/17 19:56 Eos % (Auto) 4.0 % (0.0-4.0) 08/14/17 19:56 Baso % (Auto) 0.3 % (0.0-2.0) 08/14/17 19:56 Neut # (Auto) 3.6 K/uL (1.8-7.0) 08/14/17 19:56 Lymph # (Auto) 1.8 K/uL (1.0-4.3) 08/14/17 19:56 [place] # (Auto) 0.5 K/uL (0.0-0.8) 08/14/17 19:56 Eos # (Auto) 0.2 K/uL (0.0-0.7) 08/14/17 19:56 Baso # (Auto) 0.0 K/uL (0.0-0.2) 08/14/17 19:56 PT 11.7 Seconds (9.8-13.1) 08/14/17 19:56 INR 1.1 (0.9-1.2) 08/14/17 19:56 APTT 37.4 Seconds (25.6-37.1) H 08/14/17 19:56 D-Dimer, Quantitative 366 ng/mlDDU (0-230) H 08/14/17 19:56 Sodium 143 mmol/l (132-148) 08/14/17 19:56 Potassium 4.1 MMOL/L (3.6-5.0) 08/14/17 19:56 Chloride 100 mmol/L (98-107) 08/14/17 19:56 Carbon Dioxide 26 mmol/L (22-30) 08/14/17 19:56 Anion Gap 21 (10-20) H 08/14/17 19:56 BUN 15 mg/dl (9-20) 08/14/17 19:56 Creatinine 1.1 mg/dl (0.8-1.5) 08/14/17 19:56 Est GFR ( Amer) > 60 08/14/17 19:56 Est GFR (Non-Af Amer) > 60 08/14/17 19:56 POC Glucose (mg/dL) 163 mg/dL (65-110) H 08/16/17 10:50 Random Glucose 85 mg/dL (75-110) 08/14/17 19:56 Hemoglobin A1c 7.8 % (4.2-6.5) H 08/14/17 19:56 Calcium 9.8 mg/dL (8.4-10.2) 08/14/17 19:56 Iron 32 ug/dL (49-181) L 08/15/17 05:45 TIBC 278 ug/dL (250-450) 08/15/17 05:45 % Saturation 12 % (20-55) L 08/15/17 05:45 Total Bilirubin 0.5 mg/dl (0.2-1.3) 08/14/17 19:56 AST 25 U/L (17-59) 08/14/17 19:56 ALT 14 U/L (21-72) L 08/14/17 19:56 Alkaline Phosphatase 65 U/L (38-126) 08/14/17 19:56 Troponin I < 0.0120 ng/mL (0.00-0.120) 08/15/17 05:45 Total Protein 8.7 G/DL (6.3-8.2) H 08/14/17 19:56 Albumin 4.4 g/dL (3.5-5.0) 08/14/17 19:56 Globulin 3.9 gm/dL (2.2-3.9) 08/14/17 19:56 Albumin/Globulin Ratio 1.0 (1.0-2.1) 08/14/17 19:56 Triglycerides 122 mg/DL (0-149) 08/14/17 19:56 Cholesterol 148 mg/dL (0-199) 08/14/17 19:56 LDL Cholesterol Direct 90 mg/dL (0-129) 08/14/17 19:56 HDL Cholesterol 29 MG/DL (30-70) L 08/14/17 19:56 Vitamin B12 316 pg/mL (239-931) 08/15/17 05:45 Urine Opiates Screen Negative (NEGATIVE) 08/15/17 18:05 Urine Methadone Screen Negative (NEGATIVE) 08/15/17 18:05 Ur Barbiturates Screen Negative (NEGATIVE) 08/15/17 18:05 Ur Phencyclidine Scrn Negative (NEGATIVE) 08/15/17 18:05 Ur Amphetamines Screen Negative (NEGATIVE) 08/15/17 18:05 U Benzodiazepines Scrn Negative (NEGATIVE) 08/15/17 18:05 U Oth Cocaine Metabols Negative (NEGATIVE) 08/15/17 18:05 U Cannabinoids Screen Negative (NEGATIVE) 08/15/17 18:05 RPR Nonreactive (NONREACTIVE) 08/15/17 05:45 HIV 1&2 Antibody Screen Negative (NEGATIVE) 08/15/17 05:45 Blood Type A POSITIVE 08/14/17 19:56 Antibody Screen Negative 08/14/17 19:56 BBK History Checked Patient has bt 08/14/17 19:56 - Hospital Course Hospital Course: 61 years old male with hx of DM II, HTN and branchial Plexopathy who came with a 24hours hx of left facial weakness, numbness and slurred speech. Facial weakness spares the forehead and pt able to close eyelid. He had feeling no visual abnormalities , no SOB nor palpitations. In the ED his NIHSS was 2. CT of the head : negative MRI of Brain : Small acute infarct right posterior superior frontal subcortical white matter. Mild to moderate chronic white matter and brainstem ischemic changes as described. 1. Acute CVA Consulted Dr Richard Neurology -CTA of head and neck: negative - MRI brain: small acute CVA - cont ASA, start Statin and Plavix - Lovenox for DVT proph - Passed Swallow eval - Regular diet with thin liquid - PT/OT consulted, Speech therapist instructed pt on oral- motor exercise - ECHO: normal LV fxn 2. Mild Anemia, iron def chronic 3. DM II insulin requiring - Hold Metformin for 48 hrs because of Contrast used in cat scan - Regular Insulin sliding scale according to Accucheck - Restart Long acting Insulin 4. Elevated D Dimer - CTA Chest: Negative for Pulmonary Embolism 5. 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 DVT prophylaxis with SCD and Lovenox Discharge Exam - Head Exam Head Exam: ATRAUMATIC, NORMAL INSPECTION - Eye Exam Eye Exam: EOMI, Normal appearance, PERRL Pupil Exam: NORMAL ACCOMODATION - ENT Exam ENT Exam: Mucous Membranes Moist, Normal External Ear Exam - Neck Exam Neck exam: Full Rom - Respiratory Exam Respiratory Exam: NORMAL BREATHING PATTERN. absent: Respiratory Distress - Cardiovascular Exam Cardiovascular Exam: REGULAR RHYTHM, +S1, +S2 - GI/Abdominal Exam GI & Abdominal Exam: Normal Bowel Sounds, Soft. absent: Tenderness - Extremities Exam Extremities exam: normal capillary refill, pedal pulses present Additional comments: no calf tenderness - Back Exam Back exam: FULL ROM. absent: CVA tenderness (L), CVA tenderness (R) - Neurological Exam Neurological exam: Alert, Oriented x3 Additional comments: left facial droop - Psychiatric Exam Psychiatric exam: Normal Affect, Normal Mood - Skin Skin Exam: Dry, Normal Color, Warm Discharge Plan - Discharge Medications Prescriptions: Atorvastatin [Lipitor] 20 mg PO DAILY #30 tab Clopidogrel [Plavix] 75 mg PO DAILY #30 tab - Follow Up Plan Condition: GOOD Disposition: HOME/ ROUTINE Instructions: Stroke (DC) Additional Instructions: follow up with in 7-10days follow up with pmd in 1 week Oral motor exercises - instructed by Speech therapist Hold Metformin x 48 hrs ( pt received IV Contrast) Referrals: Jean Richard MD [Medical Doctor] -
[2017-08-16 15:45] VITALS: BP 135/75; PULSE 94; TEMP 97.8
--- NOTE | 2017-08-16 18:03 | CARD ---
APPROVED REPORT EXAM: Two-dimensional and M-mode echocardiogram with Doppler and color Doppler. Other Information Quality : GoodRhythm : NSR INDICATION CVA/TIA 2D DIMENSIONS IVSd1.24 (0.7-1.1cm)LVDd3.99 (3.9-5.9cm) LVOT Diameter2.34 (1.8-2.4cm)PWd1.06 (0.7-1.1cm) IVSs1.61 (0.8-1.2cm)LVDs3.03 (2.5-4.0cm) FS (%) 24.1 %PWs1.33 (0.8-1.2cm) M-Mode DIMENSIONS Left Atrium (MM)3.17 (2.5-4.0cm)IVSd0.94 (0.7-1.1cm) Aortic Root3.17 (2.2-3.7cm)LVDd4.99 (4.0-5.6cm) Aortic Cusp Exc.2.21 (1.5-2.0cm)PWd1.10 (0.7-1.1cm) IVSs1.24 cmFS (%) 30 % LVDs3.47 (2.0-3.8cm)PWs1.46 cm Mitral Valve MV E Vcprfjjc59.2cm/sMV DECEL [id number] A Hmxovgdn30.0cm/s MV [id number]/A ratio1.2MVA (PHT)4.11cm2 TDI Lateral E' Peak V13.93cm/sMedial E' Peak V6.84cm/sE/Lateral E'5.3 E/Medial E'10.7 LEFT VENTRICLE The left ventricle is normal size. There is normal left ventricular wall thickness. The left ventricular function is normal. The left ventricular ejection fraction is 60% There is normal LV segmental wall motion. The left ventricular diastolic function is normal. No left ventricle thrombus noted on this study. There is no ventricular septal defect visualized. There is no left ventricular aneurysm. There is no mass noted in the left ventricle. RIGHT VENTRICLE The right ventricle is normal size. There is normal right ventricular wall thickness. The right ventricular systolic function is normal. ATRIA The left atrium size is normal. The right atrium size is normal. The interatrial septum is intact with no evidence for an atrial septal defect. AORTIC VALVE The aortic valve is normal in structure. No aortic regurgitation is present. There is no aortic valvular stenosis. There is no aortic valvular vegetation. MITRAL VALVE The mitral valve is normal in structure. There is no evidence of mitral valve prolapse. There is no mitral valve stenosis. There is no mitral valve regurgitation noted. TRICUSPID VALVE The tricuspid valve is normal in structure. There is no tricuspid valve regurgitation noted. There is no tricuspid valve prolapse or vegetation. There is no tricuspid valve stenosis. PULMONIC VALVE The pulmonary valve is normal in structure. There is no pulmonic valvular regurgitation. There is no pulmonic valvular stenosis. GREAT VESSELS The aortic root is normal in size. The ascending aorta is normal in size. The IVC is normal in size and collapses >50% with inspiration. PERICARDIAL EFFUSION The pericardium appears normal. There is no pleural effusion. <Conclusion> Normal Echocardiogram
--- NOTE | 2017-08-16 18:20 | CARD ---
APPROVED REPORT EKG Measurement Heart [id number] <Conclusion> Normal sinus rhythm Normal ECG
== END 2017-08-16 17:00 | disposition home or self-care (01) | DRG 66 ==
LOC: H.ER 18:38 → H.ERHOLD 21:24 → H.TEL 08-15 00:07 → OBSVTOIN 08-15 15:04
PROVIDERS: ADMIT Internal Medicine; ATTEND Internal Medicine
DX: I63.9 Cerebral infarction, unspecified (principal); R29.810 Facial weakness; R79.1 Abnormal coagulation profile; Z79.4 Long term (current) use of insulin; D50.9 Iron deficiency anemia, unspecified; R47.81 Slurred speech; I10 Essential (primary) hypertension; Z96.612 Presence of left artificial shoulder joint; G56.21 Lesion of ulnar nerve, right upper limb; G54.0 Brachial plexus disorders; E11.42 Type 2 diabetes mellitus with diabetic polyneuropathy